=== PATIENT | female | born 1980 | race Caucasian/White ===

== ENCOUNTER → 2019-04-19 09:23 | Outpatient (BNVA) | payer MEDICARE, MEDICAID, SELFPAY | PROVIDERS: Family Provider Family Medicine; PCP Family Medicine; Visit Provider Family Medicine | DX: Z13.6 Encounter for screening for cardiovascular disorders (principal); K21.9 Gastro-esophageal reflux disease without esophagitis; R03.0 Elevated blood-pressure reading, without diagnosis of hypertension; F17.229 Nicotine dependence, chewing tobacco, with unspecified nicotine-induced disorders; E66.01 Morbid (severe) obesity due to excess calories; Z68.44 Body mass index [BMI] 60.0-69.9, adult | CPT/HCPCS: 80053; 80061; 85025 ==

== ENCOUNTER → 2019-04-20 10:53 | Outpatient (BNVA) | payer MEDICARE, MEDICAID, SELFPAY | PROVIDERS: Family Provider Family Medicine; PCP Family Medicine; Visit Provider Family Medicine | DX: Z13.6 Encounter for screening for cardiovascular disorders (principal); K21.9 Gastro-esophageal reflux disease without esophagitis; R03.0 Elevated blood-pressure reading, without diagnosis of hypertension; F17.229 Nicotine dependence, chewing tobacco, with unspecified nicotine-induced disorders; E66.01 Morbid (severe) obesity due to excess calories; Z68.44 Body mass index [BMI] 60.0-69.9, adult; R73.09 Other abnormal glucose | CPT/HCPCS: 83036 ==

== ENCOUNTER 2019-11-30 08:38 | Emergency (ER) | payer MEDICARE, MEDICAID, SELFPAY ==
[2019-11-30 08:39] VITALS: BP 186/80; PULSE 103; RESP 18; TEMP 36.5; O2SAT 98; BMI 63.8
--- NOTE | 2019-11-30 08:44 | W.ED.GENADLT ---
HPI - General Adult General: Chief complaint: Upper Respiratory Infection Stated complaint: MOUTH PAIN Time Seen by Provider: 11/30/19 08:39 Source: patient Mode of arrival: ambulatory Limitations: no limitations History of Present Illness: HPI narrative: Patient is a 39-year-old female who presents to ED today with complaint of a sore throat over the past few days as well as a cough for the past 3 weeks. Patient tells me she does have a history of allergic rhinitis. She feels her sore throat is most likely due to congestion and postnasal drainage. She has not been running fevers. She states she does have a history of bronchitis and feels like her cough feels similar. No sick contacts. She is not complaining of chest pain or shortness of breath. Onset (ago): day(s) Associated symptoms: Deny chest pain, dyspnea, headache(s), malaise, nausea, rash, palpitations, syncope or vomiting Review of Systems Const: Denies: fever(s), chills, body aches, fatigue, malaise or night sweats Eyes: Denies: change in vision, blurry vision, photophobia, eye discomfort or eye discharge ENMT: Reports: throat pain, odynophagia, nasal discharge, nasal congestion and post nasal drip; Denies: enlarged tonsils, swelling of lips/tongue, oral sores, ear or mastoid pain, ear discharge, change in hearing, tinnitus, epistaxis or sinus pain Card: Denies: chest pain, palpitations, irregular heart rhythm, edema, swelling of feet/ankles, lightheadedness, syncope or pre-syncope Resp: Reports: chest congestion; Denies: dyspnea, productive cough, non-productive cough, wheezing or hemoptysis GI: Denies: abdominal pain, nausea, vomiting or diarrhea Musc: Denies: neck pain or back pain Skin/Breast: Denies: rash Neuro: Denies: headache(s) All/Imm: Denies: facial swelling or seasonal rhinorrhea PFS ED PFSH: Medical History (Updated 11/30/19 @ 09:17 by JONG Acharya) GERD (gastroesophageal reflux disease) Surgical History H/O sinus surgery Family History Other Diabetes Lung disease Social History Smoking and tobacco status: current every day smoker smokeless tobacco Smokeless tobacco user: chewing tobacco Alcohol intake: never Household members: family Housing: House Physical Exam Const: COMMON NORMALS: no acute distress, patient oriented x3, no limitations and alert NUTRITIONAL APPEARANCE: obese morbidly obese HENMT: COMMON NORMALS: normocephalic, atraumatic, hearing grossly normal bilaterally, external ears normal, EAC's normal, TM's normal bilaterally, Normal external nose present, Normal nasal mucous membranes and turbinates present, moist oral mucous membranes, oropharynx normal and gingiva normal HEAD & SCALP: normal to inspection, normocephalic and atraumatic FACE & SINUS: normal facial exam and sinuses nontender NOSE: Normal external nose present and Normal nasal mucous membranes and turbinates present EXTERNAL EAR: Yes external ears normal EXTERNAL AUDITORY CANAL: EAC's normal TYMPANIC MEMBRANE: TM's normal bilaterally MOUTH: Normal oral and palatal mucosa present, lip normal and tongue normal TEETH & GINGIVA: Yes poor dentition THROAT: posterior oropharynx normal, tonsils normal, uvula midline and postnasal drainage Eye: COMMON NORMALS: Equal, round and reactive pupils present, EOMs intact bilaterally, conjunctivae normal and no scleral icterus GENERAL EYE: appearance normal, both eyes and all related structures CONJUNCTIVA: Yes conjunctivae normal PUPIL: Yes Equal, round and reactive pupils present Neck/C-Spine: COMMON NORMALS: full ROM and no lymphadenopathy Resp: COMMON NORMALS: normal respiratory effort and clear to auscultation bilaterally AUSCULTATION: clear to auscultation bilaterally Cardio: COMMON NORMALS: regular rate and regular rhythm RATE: regular rate RHYTHM: regular rhythm Neuro: COMMON NORMALS: patient oriented x3 SENSORIUM/ORIENTATION: Yes alert Skin: COMMON NORMALS: no rashes or lesions noted GENERAL SKIN EXAM: no rashes or lesions noted Course Vital Signs: Vital signs: Vital Signs Temperature 97.7 F 11/30/19 08:39 Pulse Rate 103 H 11/30/19 08:39 Respiratory Rate 20 H 11/30/19 09:18 Blood Pressure 186/80 11/30/19 08:39 Pulse Oximetry 98 11/30/19 08:39 MDM - General Adult MDM Narrative: Medical decision making narrative: Patient clinically appears in no acute distress. She reports several previous episodes of bronchitis. Discussed how the vast majority of these infections are viral and there is no need for antibiotics at this time. Recommend she follow-up with PCP. Discussed conservative measures at home. Return to ED precautions given. Imaging Data^: CXR: Radiologist's impression: [facility] [address] [place] [address] XRay Report Signed Patient: Yaquelin Dueñas Unit #: [id number] : [id number] Age/Sex: 39 / F ADM Date: 11/30/19 Loc: ER Room/Bed: Attending Dr: Ordering Provider/Ordering MD: Alicia Lewis Date of Service: 11/30/19 Procedure(s): XR chest 1V portable [id number] Accession Number(s): [id number] Report Number: [id number] WS: [id number] Portable AP upright chest, 11/30/2019 Clinical Data: cough Comparison: PA and lateral chest, 04/14/2017. Findings: No nodules, masses or effusions are seen. The heart is normal. The pulmonary vascularity is not increased. No pneumonia or pneumothorax is seen. XR/XR chest 1V portable [id number] Impression: Negative chest. Dictated By: Nivia Mckeon MD Signed By: Nivia Mckeon MD Signed Date/Time: 11/30/19923 DD/ 2 Discharge Plan Discharge Patient Disposition: Home Clinical Impression: Bronchitis Condition: Stable Prescriptions: No Action omeprazole 40 mg capsule,delayed release(DR/EC) 40 mg PO ONCE Qty: 30 RF: 0 metformin 500 mg tablet extended release 24 hr 500 mg PO DAILY Qty: 30 RF: 0 Discharge Orders: Discharge Order (Routine); Ordered 11/30/19 Ordered By: Alicia Lewis Referrals: Silvia Morataya DO [Primary Care Provider] - Patient Instructions: Bronchitis (Acute) - Adult, Acute Bronchitis (ED) Discharge Date/Time: 11/30/19 09:18 Coding Level of Care Code ED [employer] Chief for Chg Fwd Exam Detailed
--- NOTE | 2019-11-30 08:56 | XR_ITS ---
WS: [id number] Portable AP upright chest, 11/30/2019 Clinical Data: cough Comparison: PA and lateral chest, 04/14/2017. Findings: No nodules, masses or effusions are seen. The heart is normal. The pulmonary vascularity is not increased. No pneumonia or pneumothorax is seen. XR/XR chest 1V portable [id number] Impression: Negative chest.
[2019-11-30 09:18] VITALS: RESP 20
== END 2019-11-30 09:18 | disposition home or self-care (01) ==
PROVIDERS: Emergency Provider Physician Assistant; Family Provider Family Medicine; PCP Family Medicine
DX: J40 Bronchitis, not specified as acute or chronic (principal); F17.220 Nicotine dependence, chewing tobacco, uncomplicated
CPT/HCPCS: 12345; 71045; 99281; 99282

== ENCOUNTER 2021-03-25 21:03 | Emergency (ER) | payer MEDICARE, MEDICAID, SELFPAY ==
[2021-03-25 21:12] VITALS: BP 138/42; PULSE 99; RESP 18; TEMP 36.9; O2SAT 97; BMI 65.3
--- NOTE | 2021-03-25 21:28 | ED_ITS ---
HPI - Skin/Abscess/Foreign Bdy General: Chief complaint: Skin/Abscess/Foreign Body Stated complaint: hook in R heel Time Seen by Provider: 03/25/21 21:26 Source: patient Mode of arrival: ambulatory Limitations: no limitations History of Present Illness: HPI narrative: Patient is a 40-year-old female presents to ED today with a complaint of a fishhook to her right heel. Patient states she was walking in her home and apparently the fishhook was on the floor. Tetanus is up-to-date. MD complaint: foreign body Onset (ago): hour(s) Tetanus up to date: yes Location: R foot Severity: mild Associated symptoms: Reports no associated symptoms Treatments prior to arrival: none Review of Systems Musc: Reports: extremity pain (fish hook to R heel) Skin/Breast: Reports: other (no redness/swelling/drainage) Neuro: Denies: numbness in extremities or sensory changes [facility] ED PFSH: Medical History (Updated 03/25/21 @ 21:49 by JONG Acharya) GERD (gastroesophageal reflux disease) Surgical History H/O sinus surgery Family History Other Diabetes Lung disease Social History Smoking and tobacco status: current every day smoker smokeless tobacco Smokeless tobacco user: chewing tobacco Alcohol intake: never Household members: family Housing: House Female Reproductive History: Date of last menstrual period: 03/22/21 Physical Exam Const: COMMON NORMALS: no acute distress, patient oriented x3, no limitations and alert NUTRITIONAL APPEARANCE: obese morbidly obese Extremity: GENERAL: Yes normal exam except as noted RIGHT LOWER EXTREMITY: Yes foot & digits (small barbed fishhook to R heel; no infection) Right foot and digits: Yes neurovascular exam (normal) Neuro: COMMON NORMALS: patient oriented x3 SENSORIUM/ORIENTATION: Yes alert Procedures Foreign Body Removal Time Out Performed: no Site: right and foot Description of foreign body: fish hook Sedation/Analgesia: other (local lidocaine) Technique: other (removed with hemostats ) Confirmed by:: direct visualization Complications: none Neurovascular: normal distal pulse, normal capillary fill, distal light touch sensation intact, distal motor function normal and no signs of compartment syndrome Course Vital Signs: Vital signs: Vital Signs Temperature 98.4 F 03/25/21 21:12 Pulse Rate 99 03/25/21 21:12 Respiratory Rate 18 03/25/21 21:12 Blood Pressure 138/42 03/25/21 21:12 Pulse Oximetry 97 03/25/21 21:12 MDM - Skin/Abscess/Foreign Bdy MDM Narrative: Medical decision making narrative: Fish hook was easily removed with local lidocaine and gentle traction. Patient was instructed to keep area clean and monitor for signs of infection. Discharge Plan Discharge Patient Disposition: Home Clinical Impression: Fish hook in foot Condition: Stable Prescriptions: No Action doxycycline hyclate 100 mg tablet 100 mg PO BID 7 Days Qty: 14 RF: 0 omeprazole 40 mg capsule,delayed release(DR/EC) 40 mg PO ONCE Qty: 21 RF: 0 Discharge Orders: Discharge ED (Routine); Ordered 03/25/21 Ordered By: Alicia Lewis Referrals: Silvia Morataya DO [Primary Care Provider] - Coding Level of Care Code ED Case Management Rn for Betina Stout
== END 2021-03-25 21:54 | disposition home or self-care (01) ==
PROVIDERS: Emergency Provider Physician Assistant; PCP Family Medicine
DX: S91.341A Puncture wound with foreign body, right foot, initial encounter (principal); F17.220 Nicotine dependence, chewing tobacco, uncomplicated; W26.8XXA Contact with other sharp object(s), not elsewhere classified, initial encounter
CPT/HCPCS: 99282

== ENCOUNTER → 2022-02-13 09:16 | Outpatient (BNVA) | payer MEDICARE, MEDICAID, SELFPAY | PROVIDERS: PCP Family Medicine; Referring Provider Nurse Practitioner Family; Visit Provider Nurse Practitioner Family | DX: S49.91XA Unspecified injury of right shoulder and upper arm, initial encounter (principal); S69.91XA Unspecified injury of right wrist, hand and finger(s), initial encounter; X58.XXXA Exposure to other specified factors, initial encounter | CPT/HCPCS: 73030; 73130 ==